=== PATIENT | male | born 1970 | race Caucasian/White ===

== ENCOUNTER 2017-07-01 09:06 | Emergency (ER) | payer SELFPAY ==
[~2017-07-01] VITALS: Ht 172.7 cm; Wt 83.9 kg
[2017-07-01 09:16] VITALS: BP 120/69
[2017-07-01] MEDS ORDERED: KETOROLAC 30 MG/1 ML ONE (10:18)
[2017-07-01] MEDS ORDERED: ACETAMINOPHEN 500 MG TABLET ONE (10:18)
[2017-07-01] MEDS ORDERED: ACETAMINOPHEN 500 MG TABLET PO ONE (10:30)
[2017-07-01] MEDS ORDERED: KETOROLAC 30 MG/1 ML IM ONE (10:30)
[2017-07-01 10:51] LABS: RAPID INFLUENZA A Negative (Negative); RAPID INFLUENZA B Negative (Negative)
== END 2017-07-01 11:12 | disposition home or self-care (01) ==
LOC: ED 10:50
DX: J01.00 Acute maxillary sinusitis, unspecified (principal); G89.29 Other chronic pain; M54.5 Low back pain
CPT/HCPCS: 71020; 87400; 96372; 99285; J1885